=== PATIENT | female | born 1940 | race Caucasian/White ===

== ENCOUNTER 2021-03-31 08:01 | Observation (INO) | payer MEDICARE ==
[~2021-03-31] VITALS: Ht 160 cm; Wt 94.7 kg
[2021-03-31] MEDS ORDERED: MAALOX/HYOSCYAMINE/LIDOCAINE 45 ML BTL PO ONE (08:30)
[2021-03-31] MEDS ORDERED: MAALOX/HYOSCYAMINE/LIDOCAINE 45 ML BTL ONE (08:56)
--- NOTE | 2021-03-31 09:08 | NUR ---
STATES SUBSTERNAL CP SINCE 0200 THIS AM. STATES EEN BY EMS AT HOME AND REFUSED TRANSPORT. PT SOB IN TRIAGE, STATES THIS IS NOMRAL FOR HER WHEN WALKING. placed on cardiac cath technician ecg obtained reports hx of allergy to aspirin-erp made aware medicated per emar to r/o gerd
[2021-03-31 09:20] LABS: BASOPHILS % (AUTO) 0 % (0-1); EOSINOPHILS % (AUTO) 1 % (1-7); LYMPHOCYTES % (AUTO) 12 % (22-44); MEAN CORPUSCULAR HEMOGLOBIN 31.4 pg (27.0-34.8); MONOCYTES % (AUTO) 8 % (2-9); NEUTROPHILS % (AUTO) 80 % (42-75); PLATELET COUNT 246 x10^3/uL (130-400)
[2021-03-31 09:36] LABS: TROPONIN I < 0.015 ng/mL (0.000-0.045)
[2021-03-31 09:38] LABS: ALANINE AMINOTRANSFERASE 27 U/L (12-78); ALBUMIN 3.6 g/dL (3.4-5.0); ANION GAP 13 mmol/L (5-15); CALCIUM 8.4 mg/dL (8.5-10.1); CHLORIDE 104 mmol/L (98-107)
[2021-03-31 09:40] LABS: ALKALINE PHOSPHATASE 93 U/L (45-117); BILIRUBIN,TOTAL 0.3 mg/dL (0.2-1.0); CREATININE 1.43 mg/dL (0.55-1.02)
[2021-03-31] MEDS ORDERED: SODIUM CHLORIDE 0.9%, 500ML IVBOLUS ONE (10:30)
--- NOTE | 2021-03-31 10:50 | NUR ---
NO IV IN PLACE FOR CT EXAM
--- NOTE | 2021-03-31 10:52 | NUR ---
CLEAN CATCH UA SENT PLACED ON HOSPITAL BED PIV PLACED FOR CTA/ADMIT
[2021-03-31 11:23] LABS: MICROSCOPIC NOT IND
--- NOTE | 2021-03-31 11:50 | NUR ---
TO CT SCAN
[2021-03-31] MEDS ORDERED: OMNIPAQUE 350 MG/ML, 75ML BOTTLE ONE (11:59)
--- NOTE | 2021-03-31 12:07 | NUR ---
WITH REASSESSMENT NOW WITH WORSENING CHEST PAIN REPEAT EKG OBTAINED. ERP MADE AWARE- TO MEDICATE WITH MORPHINE/ZOFRAN AND GIVE ASA DESPITE NAUSEA ALEERGY PATIENT WITH HIGH CARDIOVASULAR RISK PER ERP
[2021-03-31] MEDS ORDERED: ONDANSETRON 2MG/ML, 2ML ONE (12:09)
[2021-03-31] MEDS ORDERED: ASPIRIN 325 MG TABLET EC ONE (12:09)
[2021-03-31] MEDS ORDERED: MORPHINE SULFATE 4 MG/ML, 1ML ONE (12:10)
[2021-03-31] MEDS ORDERED: ONDANSETRON 2MG/ML, 2ML IVPush ONE (12:30)
[2021-03-31] MEDS ORDERED: ASPIRIN 325 MG TABLET EC PO ONE (12:30)
[2021-03-31] MEDS ORDERED: MORPHINE SULFATE 4 MG/ML, 1ML IVPush PRN (12:30)
[2021-03-31] MEDS ORDERED: GLUCAGON 1 MG IM PRN (13:00)
[2021-03-31] MEDS ORDERED: TRAZODONE 50MG TABLET PO PRN (13:00)
[2021-03-31] MEDS ORDERED: PROMETHAZINE 25 MG/ML, 1ML IM PRN (13:00)
[2021-03-31] MEDS ORDERED: DEXTROSE 4 GM TAB.CHEW PO PRN (13:00)
[2021-03-31] MEDS ORDERED: hydrALAzine 20 MG/ML, 1ML IVPush PRN (13:00)
[2021-03-31] MEDS ORDERED: POLYETHYLENE GLYCOL 17 GM PACKET PO PRN (13:00)
[2021-03-31] MEDS ORDERED: ENALAPRILAT 1.25 MG/ML, 2ML IVPush PRN (13:00)
[2021-03-31] MEDS ORDERED: DEXTROSE 50%, 50ML SYRINGE IVPush PRN (13:00)
[2021-03-31] MEDS ORDERED: ACETAMINOPHEN 325 MG TABLET PO PRN (13:00)
[2021-03-31] MEDS ORDERED: LABETALOL 5MG/ML, 20ML IVPush PRN (13:00)
[2021-03-31] MEDS ORDERED: BISACODYL 10 MG SUPP PR PRN (13:00)
[2021-03-31] MEDS ORDERED: NITROGLYCERIN 0.4 MG BOTTLE (25 TABS) SL PRN (13:00)
[2021-03-31] MEDS ORDERED: DOCUSATE 100 MG CAPSULE PO PRN (13:00)
[2021-03-31] MEDS ORDERED: GABAPENTIN 300 MG CAPSULE PO PRN (13:00)
[2021-03-31] MEDS ORDERED: ONDANSETRON 2MG/ML, 2ML IVPush PRN (13:00)
[2021-03-31] MEDS ORDERED: INSU100V8 SQ (14:02)
[2021-03-31] MEDS ORDERED: SIMV5TAB14 PO (14:02)
[2021-03-31] MEDS ORDERED: OXYB5TAB10 PO (14:02)
[2021-03-31] MEDS ORDERED: BENA5TAB3 PO (14:02)
--- NOTE | 2021-03-31 14:53 | NUR ---
niece (best contact) Estelle [phone] : Pramod [phone] son: Konstantin [phone]
[2021-03-31] MEDS ORDERED: HEPARIN 5,000 UNITS/ML, 1ML ONE (15:14)
[2021-03-31] MEDS ORDERED: INSULIN LISPRO SINGLE DOSE, ER SQ-INSULIN ONE (15:14)
[2021-03-31] MEDS: INSULIN LISPRO 100 UNITS/ML, PEN SQ-INSULIN SCH ×2 (15:16→19:43)
[2021-03-31] MEDS: HEPARIN 5,000 UNITS/ML, 1ML SQ SCH ×2 (15:17→19:44)
[2021-03-31] MEDS ORDERED: BENA40TA3 PO (18:55)
[2021-03-31] MEDS ORDERED: BACL-19 PO (18:55)
[2021-03-31] MEDS ORDERED: SIMV10TA18 PO (18:55)
[2021-03-31] MEDS ORDERED: FENO48TA10 PO (18:55)
[2021-03-31] MEDS ORDERED: OMEP-110 PO (18:55)
[2021-03-31] MEDS ORDERED: AMLO-150 PO (18:55)
[2021-03-31] MEDS ORDERED: GABA600T7 PO (18:55)
[2021-03-31] MEDS ORDERED: ROPI1TAB4 PO (18:55)
--- NOTE | 2021-03-31 19:04 | NUR ---
Patient is resting comfortably in bed. Bed in lowest, rails engaged, call light on lap. Vital Signs within normal limits. WCTM. NADN. AWAITING TO GO TO THE FLOOR. PT READING BOOK
[2021-03-31] MEDS: SODIUM CHLORIDE FLUSH 10ML SYR IVF SCH (19:31)
[2021-03-31 19:32] VITALS: BP 126/60
[2021-03-31] MEDS ORDERED: SIMVASTATIN 5 MG TABLET PO SCH (21:00)
[2021-03-31] MEDS ORDERED: FAMOTIDINE 20 MG TABLET PO SCH (21:00)
[2021-04-01 01:15] VITALS: BP 108/58
[2021-04-01] MEDS: HEPARIN 5,000 UNITS/ML, 1ML SQ SCH ×2 (04:38→13:15)
[2021-04-01 06:35] LABS: CHLORIDE 106 mmol/L (98-107)
[2021-04-01 06:58] LABS: ANION GAP 7 mmol/L (5-15); CHOL/HDL RATIO 2.9; CHOLESTEROL, TOTAL 117 mg/dL (140-239); CREATININE 1.64 mg/dL (0.55-1.02); HDL CHOL % 35 % (28-40); HDL CHOLESTEROL (DIRECT) 41 mg/dL (40-60); LDL CHOLESTEROL,CALCULATED 37 mg/dL (54-169); LDL/HDL RATIO 0.9 (0.5-3.0); TRIGLYCERIDES 196 mg/dL (50-200); VLDL CHOLESTEROL 39 mg/dL (0-25)
[2021-04-01 07:26] LABS: TROPONIN I < 0.015 ng/mL (0.000-0.045)
[2021-04-01 08:00] VITALS: BP 127/62
[2021-04-01] MEDS: INSULIN LISPRO 100 UNITS/ML, PEN SQ-INSULIN SCH ×2 (08:01→13:16)
[2021-04-01] MEDS ORDERED: BENAZEPRIL 10 MG TABLET ONE (08:07)
[2021-04-01] MEDS: SODIUM CHLORIDE FLUSH 10ML SYR IVF SCH (08:12)
[2021-04-01] MEDS ORDERED: REGADENOSON 0.4 MG/5 ML SYRINGE ONE (09:00)
[2021-04-01] MEDS ORDERED: BENAZEPRIL 5 MG TABLET PO SCH (09:00)
[2021-04-01] MEDS ORDERED: OXYBUTYNIN CHLORIDE 5 MG TABLET PO SCH (09:00)
== END 2021-04-01 15:30 | disposition home or self-care (01) ==
LOC: ED 08:49 → EDIP 12:17 → INTOOBSV 12:17 → 5SO 17:39 → EDIP 17:40 → 5SO 19:20
PROVIDERS: ADMIT Hospitalist; ATTEND Family Medicine
DX: R07.89 Other chest pain (principal); D72.829 Elevated white blood cell count, unspecified; I12.9 Hypertensive chronic kidney disease with stage 1 through stage 4 chronic kidney disease, or unspecified chronic kidney disease; E11.22 Type 2 diabetes mellitus with diabetic chronic kidney disease; N18.4 Chronic kidney disease, stage 4 (severe); I51.7 Cardiomegaly; Z79.4 Long term (current) use of insulin; Z79.899 Other long term (current) drug therapy; Z79.82 Long term (current) use of aspirin
CPT/HCPCS: 36415; 71045; 71275; 78452; 80048; 80053; 80061; 81003; 82962; 83036; 83690; 83735; 84100; 84443; 84484; 85025; 85379; 93005; 93017; 93306; 96361; 96372; 96374; 96375; 99285; A9502; G0378; J1644; J1815; J2270; J2405; J2785; J7040; Q9967